=== PATIENT | male | born 1970 | race Caucasian/White ===

== ENCOUNTER 2019-09-29 08:06 | Emergency (ER) | payer BC ==
--- OUTSIDE RECORDS SUMMARY | 2019-09-29 08:10 | XMS REPORT | Continuity of Care Document ---
:1970 Author Organization [facility] t Address [address] [place] [address] Care Team Providers Name Role Phone MADHU Attending Clinician Unavailable Problems Condition Condition Condition Status Onset Resolution Last Treating Co mments Source Name Details Category Date Date Treatment Clinician Date Left hip Left hip Problem Active [facility] pain pain [facility] It band It band Problem Active [facility] syndrome, syndrome, [facility] of left left [facility] Allergies, Adverse Reactions, Alerts This patient has no known allergies or adverse reactions. Social History Smoking Status Start Date Stop Date Source Never smoker [facility] Medications Ordered Filled Start Stop Current Ordering Indication Dosage Frequency Signature Comments Components Source Medication Medication Date Date Medication? Clinician (SIG) Name Name Meloxicam Meloxicam Yes Unive [facility] 7.5 MG Oral 7.5 MG Oral i ty of Tablet Tablet [facility] Vital Signs Vital Name Observation Time Observation Value Comments Source BP Systolic 2017-04-12 132 mm[Hg] Location: [facility] :22:00 [facility] BP Diastolic 2017-04-12 87 mm[Hg] Location: [facility] :22:00 [facility] Height 2017-04-12 69 [in_us] [facility] :22:00 [facility] Weight 2017-04-12 205 [lb_av] [facility] :22:00 [facility] Body Mass Index 2017-04-12 30.27 kg/m2 [facility] Calculated 16:22:00 [facility] Heart Rate 2017-04-12 88 /min [facility] 16:22:00 [facility] Procedures Procedure Date / Time Performing Clinician Source Performed History of knee [facility] arthroscopy Physicians History of foot [facility] History of ankle [facility] Encounters Start End Encounter Admission Attending Care Care Encounter Source Date/Time Date/Time Type Type Clinicians Facility Department ID 2017-04-12 2017-04-12 AppointNATALI Townsend [facility] [id number] [facility] 14:30:00 14:30:00 t; [facility] S Marqu[facility] Mayen ans Results Test Description Test Time Test Comments Results Result Comments Source Tobacco Use Screening 2017-04-12 20:30:00 Test Item Value Reference Range Interpretation Comme nts Completed (test code = Completed) DONE [facility]
[2019-09-29 09:20] LABS: Basophils % 0.4 % (0-1.3); Hematocrit 41.1 % (39.6-49.0); Lymphocytes % 14.8 % (15.3-44.8); MPV 7.8 fL (7.6-11.3); RBC Red Blood Cell Count 4.72 M/uL (4.33-5.43)
[2019-09-29] MEDS ORDERED: NA CHLORIDE 0.9% 1,000 ML ONE (09:24)
[2019-09-29] MEDS ORDERED: ASPIRIN 81 MG CHEWABLE TABLET ONE (09:24)
[2019-09-29 09:48] LABS: ALT/SGPT 17 U/L (12-78); AST/SGOT 13 U/L (15-37); Albumin 4.3 g/dL (3.4-5.0); Alkaline Phosphatase 69 U/L (45-117); BUN Blood Urea Nitrogen 19 mg/dL (7-18); Bicarbonate 29 mmol/L (21-32); Bilirubin Direct 0.2 mg/dL (0-0.2); Bilirubin Total 0.9 mg/dL (0.2-1.0); Glucose Level 105 mg/dL (74-106); Magnesium 2.4 mg/dL (1.8-2.4); NT PRO-BNP 64 pg/mL (<125); Protein, Total 7.5 g/dL (6.4-8.2); Sodium Level 140 mmol/L (136-145); Thyroid Stimulating Hormone 0.382 uIU/mL (0.360-3.740); Troponin (Emerg Dept Use Only) < 0.02 ng/mL (0.0-0.045)
[2019-09-29 10:04] LABS: C-Reactive Protein < 2.90 mg/L (<3.00)
--- NOTE | 2019-09-29 10:09 | RAD REPORT ---
EXAM DESCRIPTION: RAD - Chest Single View - 09/29/2019 9:54 am CLINICAL HISTORY: CHEST PAIN Chest pain. COMPARISON: No comparisons FINDINGS: Portable technique limits examination quality. The lungs are grossly clear. The heart is normal in size. No displaced fractures. IMPRESSION: No acute intrathoracic process suspected.
--- NOTE | 2019-09-29 12:30 | EDPHYS ---
Physician Documentation [facility] Name: Ruben Bunn Age: 49 yrs Sex: Male : 1970 Arrival Date: 09/29/2019 Time: 08:09 Bed 13 Private MD: ED Physician Jarrett Macario HPI: 09/28 08:50 This 49 yrs old Male presents to ER via Ambulatory with complaints of Trouble steve Sleeping, Increased Heart Rate. 08:50 The patient or guardian reports chest pain that is located primarily in the anterior steve chest wall, bilaterally. Onset: 7 day(s) ago. The pain does not radiate. Associated signs and symptoms: The patient has no apparent associated signs or symptoms. The chest pain is described as a pressure, squeezing. Duration: The patient or guardian reports multiple episodes, with no pattern. Modifying factors: The symptoms are alleviated by nothing. the symptoms are aggravated by nothing. Severity of pain: At its worst the pain was mild in the emergency department the pain is unchanged. The patient has experienced similar episodes in the past, multiple times. Historical: - Allergies: 08:32 No Known Allergies; ss - Home Meds: 08:32 None [Active]; ss - PMHx: 08:32 None; ss - PSHx: 08:32 L knee; ss - Immunization history:: Adult Immunizations up to date. - Social history:: Smoking status: Patient denies any tobacco usage or history of. - Family history:: not pertinent. ROS: 08:50 Constitutional: Negative for fever, chills, and weight loss, Eyes: Negative for injury, steve pain, redness, and discharge, ENT: Negative for injury, pain, and discharge, Neck: Negative for injury, pain, and swelling, Respiratory: Negative for shortness of breath, cough, wheezing, and pleuritic chest pain, Abdomen/GI: Negative for abdominal pain, nausea, vomiting, diarrhea, and constipation, Back: Negative for injury and pain, : Negative for injury, bleeding, discharge, and swelling, MS/Extremity: Negative for injury and deformity, Skin: Negative for injury, rash, and discoloration, Neuro: Negative for headache, weakness, numbness, tingling, and seizure, Psych: Negative for depression, anxiety, suicide ideation, homicidal ideation, and hallucinations, Allergy/Immunology: Negative for hives, rash, and allergies, Endocrine: Negative for neck swelling, polydipsia, polyuria, polyphagia, and marked weight changes, Hematologic/Lymphatic: Negative for swollen nodes, abnormal bleeding, and unusual bruising. 08:50 Cardiovascular: Positive for chest pain, palpitations. Exam: 08:52 Constitutional: This is a well developed, well nourished patient who is awake, alert, steve and in no acute distress. Head/Face: Normocephalic, atraumatic. Eyes: Pupils equal round and reactive to light, extra-ocular motions intact. Lids and lashes normal. Conjunctiva and sclera are non-icteric and not injected. Cornea within normal limits. Periorbital areas with no swelling, redness, or edema. ENT: Nares patent. No nasal discharge, no septal abnormalities noted. Tympanic membranes are normal and external auditory canals are clear. Oropharynx with no redness, swelling, or masses, exudates, or evidence of obstruction, uvula midline. Mucous membranes moist. Neck: Trachea midline, no thyromegaly or masses palpated, and no cervical lymphadenopathy. Supple, full range of motion without nuchal rigidity, or vertebral point tenderness. No Meningismus. Chest/axilla: Normal chest wall appearance and motion. Nontender with no deformity. No lesions are appreciated. Cardiovascular: Regular rate and rhythm with a normal S1 and S2. No gallops, murmurs, or rubs. Normal PMI, no JVD. No pulse deficits. Respiratory: Lungs have equal breath sounds bilaterally, clear to auscultation and percussion. No rales, rhonchi or wheezes noted. No increased work of breathing, no retractions or nasal flaring. Abdomen/GI: Soft, non-tender, with normal bowel sounds. No distension or tympany. No guarding or rebound. No evidence of tenderness throughout. Back: No spinal tenderness. No costovertebral tenderness. Full range of motion. Skin: Warm, dry with normal turgor. Normal color with no rashes, no lesions, and no evidence of cellulitis. MS/ Extremity: Pulses equal, no cyanosis. Neurovascular intact. Full, normal range of motion. Neuro: Awake and alert, GCS 15, oriented to person, place, time, and situation. Cranial nerves II-XII grossly intact. Motor strength 5/5 in all extremities. Sensory grossly intact. Cerebellar exam normal. Normal gait. Psych: Awake, alert, with orientation to person, place and time. Behavior, mood, and affect are within normal limits. 08:52 Musculoskeletal/extremity: DVT Exam: No signs of deep vein thrombosis. no pain, no swelling, no tenderness, negative Homans' sign noted on exam, no appreciated bluish discoloration, no erythema, no increased warmth. 10:19 ECG was reviewed by the Attending Physician. steve Vital Signs: 08:29 BP 139 / 91; Pulse 82; Resp 16; Temp 98.8(O); Pulse Ox 98% on R/A; Weight 88.45 kg; ss Height 5 ft. 9 in. (175.26 cm); Pain 0/10; 09:43 BP 125 / 94; Pulse 78; Resp 20; Pulse Ox 100% on R/A; Pain 0/10; jr10 10:44 BP 128 / 85; Pulse 79; Resp 18; Pulse Ox 99% on R/A; jr10 11:52 BP 131 / 81; Pulse 69; Resp 18; Pulse Ox 100% on R/A; jr10 08:29 Body Mass Index 28.80 (88.45 kg, 175.26 cm) ss MDM: 08:[address] [facility] 08:52 Differential diagnosis: abnormal EKG, acute myocardial infarction, anxiety, chest wall steve pain, cholecystitis, Cholelithiasis esophagitis, gastritis, hiatal hernia, pancreatitis, pulmonary embolus, stable angina, unstable angina. HEART Score: History: Slightly Suspicious (0), ECG: Normal (0), Age: > 45 and < 65 years (1), Risk Factors: No Risk Factors Known (0), Troponin: < or = 1 x Normal Limit (0). The patient was given aspirin in the Emergency Department. The patient's deep vein thrombosis risk score was calculated as follows: Total Score: 0. This patient was found to be at low risk for a deep vein thrombosis by using the Well's assessment criteria. The patient's pulmonary embolism risk score was calculated as follows: Total Score: 0-2 points. This patient was found to be at low risk for a pulmonary embolism by using the Well's assessment criteria. MIKE Risk Score: TOTAL SCORE = 0. Data reviewed: vital signs, nurses notes, lab test result(s), EKG, radiologic studies. Data interpreted: surveillance system monitor: rate is 82 beats/min, rhythm is normal sinus rhythm, Pulse oximetry: on room air is 98 %. Test interpretation: by ED physician or midlevel provider: ECG, plain radiologic studies. Counseling: I had a detailed discussion with the patient and/or guardian regarding: the historical points, exam findings, and any diagnostic results supporting the discharge/admit diagnosis, the presence of at least one elevated blood pressure reading (>120/80) during this emergency department visit, lab results, radiology results, the need for outpatient follow up, for definitive care, a director video. 10:19 ED course: NO PAIN, WILL FOLLOW UP, RETURN IF WORSE. [facility] 11:20 Awaiting: labs results, TROP. [facility] 09/28 08:47 Order name: Basic Metabolic Panel; Complete Time: 10:13 [facility] 09/28 08:47 Order name: CBC with Diff; Complete Time: 10:13 [facility] 09/28 08:47 Order name: LFT's; Complete Time: 10:13 [facility] 09/28 08:47 Order name: Magnesium; Complete Time: 10:13 [facility] 09/28 08:47 Order name: NT PRO-BNP; Complete Time: 10:13 [facility] 09/28 08:47 Order name: Troponin (emerg Dept Use Only); Complete Time: 10:13 [facility] 09/28 08:47 Order name: XRAY Chest (1 view); Complete Time: 10:13 [facility] 09/28 08:47 Order name: D-Dimer; Complete Time: 10:13 [facility] 09/28 08:47 Order name: CRP; Complete Time: 10:13 [facility] 09/28 08:47 Order name: TSH; Complete Time: 10:13 [facility] 09/28 08:54 Order name: Lipase; Complete Time: 11:35 [facility] 09/28 10:14 Order name: Troponin (emerg Dept Use Only): 11 AM; Complete Time: 11:35 [facility] 09/28 08:47 Order name: EKG; Complete Time: 08:47 [facility] 09/28 08:47 Order name: Cardiac monitoring; Complete Time: 08:54 [facility] 09/28 08:47 Order name: EKG - Nurse/Tech; Complete Time: 09:10 [facility] 09/28 08:47 Order name: IV Saline Lock; Complete Time: 09:10 [facility] 09/28 08:47 Order name: Labs collected and sent; Complete Time: 09:10 [facility] 09/28 08:47 Order name: O2 Per Protocol; Complete Time: 54 [facility] 09/28 08:47 Order name: O2 Sat Monitoring; Complete Time: :54 [facility] EC:19 Rate is 74 beats/min. Rhythm is regular. QRS Ledger is Normal. GA interval is normal. QRS steve interval is normal. QT interval is normal. No Q waves. T waves are Normal. No ST changes noted. Clinical impression: Normal ECG and No evidence of ischemia. Interpreted by me. Reviewed by me. Administered Medications: 09:11 Drug: NS 0.9% 1000 ml Route: IV; Rate: 1 bolus; Site: right forearm; 10 :21 Follow up: Response: No adverse reaction; IV Status: Completed infusion 10 09:18 Drug: Aspirin Chewable Tablet 324 mg Route: PO; 10 : Follow up: Response: No adverse reaction 10 12:02 Not Given (Patient Refused; pt reports palpitations ceased post fluids): Lopressor jr10 (metoprolol TARTRATE) 50 mg PO once Disposition: 09/29/19 12:29 Discharged to Home. Impression: Chest pain, unspecified, Palpitations, Insomnia. - Condition is Stable. - Discharge Instructions: Nonspecific Chest Pain, Palpitations, Nonspecific Chest Pain, [id number], Aspirin and Your Heart, Palpitations, [id number]. - Prescriptions for Toprol XL 50 mg Oral Tablet - take 1 tablet by ORAL route once daily; 20 tablet. - Medication Reconciliation Form, Thank You Letter, Antibiotic Education, Prescription Opioid Use form. - Follow up: Private Physician; When: 2 - 3 days; Reason: Recheck today's complaints, Continuance of care, Re-evaluation by your physician. Follow up: Johnie Burch; When: 2 - 3 days; Reason: Recheck today's complaints, Re-evaluation by your physician. - Problem is new. - Symptoms have improved. Signatures: Dispatcher [employer] Jarrett Johnson MD MD cha Smirch, Shelby, RN RN Chastity Parish RN RN jr10
--- NOTE | 2019-09-29 12:30 | ER ---
Nurse's Notes [facility] Name: Ruben Bunn Age: 49 yrs Sex: Male : 1970 Arrival Date: 09/29/2019 Time: 08:09 Bed 13 Private MD: Diagnosis: Chest pain, unspecified;Palpitations;Insomnia Presentation: 09/28 08:29 Chief complaint: Patient states: "I've been on furlough for the last 4 months and have ss no idea what is going on with that. The past week has been really bad. I've been stressed out, unable to sleep and just very anxious that is making my chest feel tight. My and I haven't been doing well and she has been staying out of town, but she is about to come back.". Coronavirus screen: Client denies travel out of the [place] in the last 14 days. At this time, the client does not indicate any symptoms associated with coronavirus-19. Ebola Screen: Patient denies exposure to infectious person. Patient denies travel to an Ebola-affected area in the 21 days before illness onset. Initial Sepsis Screen: Does the patient meet any 2 criteria? No. Patient's initial sepsis screen is negative. Does the patient have a suspected source of infection? No. Patient's initial sepsis screen is negative. Risk Assessment: Do you want to hurt yourself or someone else? Patient reports no desire to harm self or others. Onset of symptoms was September 28, 2019. 08:29 Method Of Arrival: Ambulatory 08:29 Acuity: STEPHANIE 3 ss Historical: - Allergies: 08:32 No Known Allergies; ss - Home Meds: 08:32 None [Active]; ss - PMHx: 08:32 None; ss - PSHx: 08:32 L knee; ss - Immunization history:: Adult Immunizations up to date. - Social history:: Smoking status: Patient denies any tobacco usage or history of. - Family history:: not pertinent. Screenin:30 Abuse screen: Denies threats or abuse. Denies injuries from another. Nutritional jr10 screening: No deficits noted. Tuberculosis screening: No symptoms or risk factors identified. Fall Risk None identified. Assessment: 08:30 General: Appears in no apparent distress. Behavior is calm, cooperative, appropriate jr10 for age. Pain: Denies pain. Neuro: No deficits noted. Level of Consciousness is awake, alert, obeys commands, Oriented to person, place, time, situation, Appropriate for age. Cardiovascular: Reports palpitations, shortness of breath, Pulses are all present. Edema is absent. Rhythm is sinus rhythm. Respiratory: No deficits noted. Airway is patent Respiratory effort is even, unlabored, Respiratory pattern is regular, symmetrical, Breath sounds are clear bilaterally. the patient has mild shortness of breath. GI: No deficits noted. No signs and/or symptoms were reported involving the gastrointestinal system. Patient currently denies nausea, vomiting. : No deficits noted. No signs and/or symptoms were reported regarding the genitourinary system. EENT: No deficits noted. No signs and/or symptoms were reported regarding the EENT system. Derm: No deficits noted. No signs and/or symptoms reported regarding the dermatologic system. Musculoskeletal: No deficits noted. No signs and/or symptoms reported regarding the musculoskeletal system. 10:30 Reassessment: Patient and/or family updated on plan of care and expected duration. Pain jr10 level reassessed. Patient is alert, oriented x 3, equal unlabored respirations, skin warm/dry/pink. Patient states feeling better. 12:04 Reassessment: Dr Macario at bedside to speak with pt about results and POC. Will await jr10 d/c instructions. Vital Signs: 08:29 BP 139 / 91; Pulse 82; Resp 16; Temp 98.8(O); Pulse Ox 98% on R/A; Weight 88.45 kg; Height 5 ft. 9 in. (175.26 cm); Pain 0/10; 09:43 BP 125 / 94; Pulse 78; Resp 20; Pulse Ox 100% on R/A; Pain 0/10; jr10 10:44 BP 128 / 85; Pulse 79; Resp 18; Pulse Ox 99% on R/A; jr10 11:52 BP 131 / 81; Pulse 69; Resp 18; Pulse Ox 100% on R/A; jr10 08:29 Body Mass Index 28.80 (88.45 kg, 175.26 cm) ED Course: 08:09 Patient arrived in ED. ag5 08:30 Patient has correct armband on for positive identification. Bed in low position. Call jr10 light in reach. Side rails up X2. manager monitoring on. Pulse ox on. NIBP on. 08:31 Triage completed. ss 08:32 Arm band placed on right wrist. 08:36 Jarrett Macario MD is Attending Physician. [facility] 08:36 Chastity Gray, RN is Primary Nurse. jr10 08:40 Inserted saline lock: 20 gauge in right forearm, using aseptic technique. IV is patent, jr10 is intact, with good blood return, Flushed. 09:54 XRAY Chest (1 view) In Process Unspecified. EDMS 09:59 No provider procedures requiring assistance completed. jr10 12:08 IV discontinued, intact, bleeding controlled, No redness/swelling at site. Pressure jr10 dressing applied. 12:29 Johnie Burch MD is Referral Physician. jr10 Administered Medications: 09:11 Drug: NS 0.9% 1000 ml Route: IV; Rate: 1 bolus; Site: right forearm; jr10 10:21 Follow up: Response: No adverse reaction; IV Status: Completed infusion jr10 09:18 Drug: Aspirin Chewable Tablet 324 mg Route: PO; jr10 10:21 Follow up: Response: No adverse reaction jr10 12:02 Not Given (Patient Refused; pt reports palpitations ceased post fluids): Lopressor jr10 (metoprolol TARTRATE) 50 mg PO once Outcome: 12:29 Discharged to home ambulatory. jr10 12:29 Condition: stable 12:29 Discharge instructions given to patient, Instructed on discharge instructions, follow up and referral plans. Demonstrated understanding of instructions, follow-up care, medications, Prescriptions given X 1. 12:29 Discharge ordered by . jr10 12:29 Patient left the ED. jr10 Signatures: Dispatcher [employer] EDMS Jarrett Macario MD MD cha Smirch, Shelby, JACKIE RN Guillermo Alarcon ag5 Chastity Gray, RN RN jr10 Corrections: (The following items were deleted from the chart) 12:01 11:52 Pulse 69bpm; Resp 18bpm; Pulse Ox 100% RA; jr10 jr10
[2019-09-29 12:41] VITALS: TEMP 98.8
[2019-09-29 12:45] VITALS: BP 131/81; O2SAT 100
== END 2019-09-29 12:29 | disposition home or self-care (01) ==
LOC: ER 08:06
DX: R00.2 Palpitations (principal); G47.00 Insomnia, unspecified
CPT/HCPCS: 93005; 85025; 80048; 36415; 83735; 85379; 80076; 84443; 84484 ×2; 83690; 83880; 86140; 71045; 96360; 99284; J7030